=== PATIENT | female | born 1955 | race Caucasian/White ===

== ENCOUNTER → 2022-09-30 | Outpatient (CLI) | payer MEDICARE ==
[2022-09-30 07:51] LABS: African American GFR (CKD) >90 (>60 ml/min/1.73 sqM); Blood Urea Nitrogen 17 mg/dL (7-17); Non-African American GFR(CKD) 85 (>60 ml/min/1.73 sqM)
--- NOTE | 2022-09-30 08:42 | CT ---
EXAMINATION TYPE: CT soft tissue neck w con DATE OF EXAM: 09/30/2022 HISTORY: LT side neck mass, marked by BB. Hx LT side breast ca. COMPARISON: NONE CT DLP: 519.60 mGycm. Automated Exposure Control for Dose Reduction was Utilized. TECHNIQUE: CT scan of the neck is performed with IV Contrast, patient injected with 100 mL of Isovue 300, axial images are obtained, coronal and sagittal reformatted images are reviewed. FINDINGS: Airway: Calcified carinal lymph nodes are seen. There is prominent 1.5 x 0.9 cm paratracheal lymph no de axial image 10. Some prominence of the lingular tonsils at the base of the tongue. Parotid/submandibular glands: A 4 mm hyperdense focus inferior left parotid gland axial image 68 favo rs benign intraparotid lymph node. Carotid/Vascular Structures: Moderate calcified plaque bilateral carotid bulbs extends into the proxi mal internal carotid arteries without significant stenosis. Osseous Structures: Grade 1 retrolisthesis C5 on C6 with mild to moderate disc space narrowing. Bridg ing osteophytes in the thoracic spine anteriorly are seen. Other: The metallic BB is placed at level of palpable abnormality posterior left neck axial image 58. There are some prominent round hyperdense masses favoring lymph nodes at this level. Largest measure s 10 x 19 mm axial image 55 and the posterior cervical triangle and inferior level of the hyoid bone. There are similar appearing lymph nodes perhaps slightly smaller in the right posterior cervical tri angle. No definitive greater than 1.0 cm on short axis lymph nodes are identified bilaterally. There are prominent but subcentimeter lymph nodes in the submandibular region bilaterally. The parapharyngeal fat spaces are maintained bilaterally. IMPRESSION: Nonspecific prominent but subcentimeter lymph nodes corresponding to palpable abnormality posterior left neck with additional similar-appearing lymph nodes bilateral submandibular region and right posterior cervical triangle noted. No obvious greater than 1.0 cm on short axis adenopathy or concerning mass seen. Consider repeat imaging if palpable abnormality is thought to enlarge.
== END | disposition home or self-care (01) ==
LOC: RADCTMAIN 06:55
PROVIDERS: ATTEND Family Medicine
DX: R22.1 Localized swelling, mass and lump, neck (principal)
CPT/HCPCS: 82565; 84520; 70491; 36415; Q9967

== ENCOUNTER → 2023-05-25 | Outpatient (CLI) | payer MEDICARE ==
--- NOTE | 2023-05-25 20:28 | MM ---
Reason for Exam: Screening (asymptomatic). Last mammogram was performed 1 year(s) and 9 month(s) ago. Patient History: Menarche at age 13. First Full-Term at age 23. Postmenopausal. Patient has history of breast feeding. 05/05/2019, Benign Stereotactic Core Biopsy on the left side. 08/29/2016, High risk Stereotactic Core Biopsy - 3D on the left side. 09/12/2016, Benign Excisional Biopsy on the left side. Risk Values: Brandie 5 year model risk: 2.3%. NCI Lifetime model risk: 7.7%. Prior Study Comparison: 05/04/2020 Bilateral Screening Mammogram, Unknown. 08/19/2021 Bilateral Screening Mammogram, Unknown. Tissue Density: There are scattered fibroglandular densities. Findings: Analyzed By CAD. Microclip left breast from prior biopsy. There is no suspicious group of microcalcifications or new suspicious mass in either breast. Overall Assessment: Negative, BI-RAD 1 Management: Screening Mammogram of both breasts in 1 year. . Patient should continue monthly self-breast exams. A clinical breast exam by your physician is recommended on an annual basis. This exam should not preclude additional follow-up of suspicious palpable abnormalities. Note on Brandie scores and lifetime risk: 1. A Brandie score greater than 3% is considered moderate risk. If this is the case, consider specialist referral to assess eligibility for a risk reducing agent. 2. If overall lifetime risk for the development of breast cancer is 20% or higher, the patient may qualify for future screening with alternating mammogram and breast MRI. Electronically signed and approved by: Santos Santillan M.D. Radiologist
== END | disposition home or self-care (01) ==
LOC: RADMAMWWP 08:48
PROVIDERS: ATTEND Family Medicine
DX: Z12.31 Encounter for screening mammogram for malignant neoplasm of breast (principal); Z78.0 Asymptomatic menopausal state
CPT/HCPCS: 77063; 77067

== ENCOUNTER → 2023-10-20 | Outpatient (CLI) | payer MEDICARE ==
--- NOTE | 2023-10-20 17:03 | CTL ---
EXAMINATION TYPE: CT Low Dose Lung DATE OF EXAM ORDERED: 10/20/2023 HISTORY: . Low Dose CT Lung Screening CT DLP: [address] CTDI: 2.3 mGy IV CONTRAST USED: None. SCREENING VISIT: First visit COMPARISON: None. TECHNIQUE: Low dose computed tomography scan was performed through the chest at 1 millimeter thick se ctions and reconstructed images in the coronal plane at [address] DIAGNOSTIC QUALITY: Satisfactory FINDINGS: LUNG NODULES: Not presentLeft lung: no nodules identified.Right lung: no nodules identified. LUNGS: COPD: Severity: Mild Fibrosis: Severity:None Lymph nodes: None Other findings: Linear opacities within the anterior upper lobes bilaterally likely reflect inflammat ory/postinflammatory change. The remainder of the lungs are clear. Calcified hilar and mediastinal ly mph nodes compatible with remote granulomatous disease. RIGHT PLEURAL SPACE: Effusion: None Calcification: None Thickening: None Pneumothorax: None LEFT PLEURAL SPACE: Effusion: None Calcification: None Thickening: None Pneumothorax: None HEART: Heart Size: Mildly enlarged Coronary calcification: Moderate Pericardial effusion: None OTHER FINDINGS: Upper abdomen: No significant abnormality Bony thorax: Degenerative changes Supraclavicular region: No significant abnormalityOther: No significant abnormalityI IMPRESSION: No concerning pulmonary nodules greater than 5 mm in size. Bandlike areas of inflammatory /postinflammatory change in the upper lobes bilaterally. Evidence of remote granulomatous disease. FOLLOW UP CT CHEST RECOMMENDATION: Follow-up screening in one year CT LUNG RAD: LUNG RAD CATEGORY 1 negative
== END | disposition home or self-care (01) ==
LOC: RADCTMAIN 14:55
PROVIDERS: ATTEND Family Medicine
DX: Z12.2 Encounter for screening for malignant neoplasm of respiratory organs (principal); F17.210 Nicotine dependence, cigarettes, uncomplicated
CPT/HCPCS: 71271

== ENCOUNTER 2023-12-20 07:36 | Day surgery (SDC) | payer MEDICARE ==
[2023-12-20] MEDS ORDERED: PROPOFOL 10 MG/ML 20 ML VIAL IV ONE (08:40)
[2023-12-20] MEDS ORDERED: LACTATED RINGERS 1,000 ML BAG ONE (08:40)
--- NOTE | 2024-01-18 12:25 | FL ---
Jesusitakarl Aliya ID: [id number] : 1955 EXAMINATION TYPE: FL barium enema DATE OF EXAM: 12/20/2023 COMPARISON: None available HISTORY: 68-year-old female incomplete colonoscopy today, skull to the mid sigmoid colon, no biopsies . Patient with strong family history and colonoscopy performed every 3 years. TECHNIQUE: A single contrast barium enema study is performed. A total of 1 minute 51 seconds of flu oroscopic time was utilized during procedure and 48 images obtained. Total dose area product (DAP) i n uGy*m?, mGy*cm? (or similar): 55. FINDINGS: [employer] Consultant view of the abdomen shows prominent residual air throughout the colon. Decision was made to proceed with a single contrast enema exam. Contrast is administered per rectum and successfully passes to the cecum. There is filling of the kalee endix. Left-sided colonic diverticulosis is noted, greatest in the lower descending as well as the pr oximal to mid sigmoid colon. There is persistent irregular narrowing for a length of 7.4 cm at the proximal sigmoid colon. No othe r annular constricting lesions are identified. In addition, along the proximal third transverse colon, there is a 1.7 cm filling defect and a 1.0 cm filling defect noted along the posterior wall, supine Post-Evac image. These could represent small f ecaliths or polyps. IMPRESSION: 1. Persistent irregular narrowing for a 7.4 cm long segment of the proximal sigmoid colon. Further wo rkup for postinflammatory stricture versus neoplasm recommended. 2. A couple filling defects measuring 1.7 cm and 1.0 cm along the posterior wall of the proximal thir d transverse colon seen on the last image. These could represent small fecaliths or underlying polyps . 3. Left-sided colonic diverticulosis greatest in the lower descending and proximal to mid sigmoid col on.
--- NOTE | 2024-02-26 16:07 | P.GSHP ---
History of Present Illness H&P Date: 12/20/23 CHIEF COMPLAINT: GERD and colon screen HISTORY OF PRESENT ILLNESS: The patient is a 68-year-old female who presents with gastroesophageal reflux disease and need for colon screen. Upper and lower endoscopy were offered for further evaluation and management. PAST MEDICAL HISTORY: Please see list. PAST SURGICAL HISTORY: Please see list. MEDICATIONS: Please see list. ALLERGIES: Please see list. SOCIAL HISTORY: No illicit drug use FAMILY HISTORY: No reports of Crohn disease or ulcerative colitis. REVIEW OF ORGAN SYSTEMS: CONSTITUTIONAL: No reports of fevers or chills. GI: Denies any blood in stools or constipation. PHYSICAL EXAM: VITAL SIGNS: Stable GENERAL: Well-developed pleasant in no acute distress. HEENT: No scleral icterus. Extraocular movements grossly intact. Moist buccal mucosa. NECK: Supple without lymphadenopathy. CHEST: Unlabored respirations. Equal bilateral excursions. CARDIOVASCULAR: Regular rate and rhythm. Distal 2+ pulses. ABDOMEN: Soft, nondistended. MUSCULOSKELETAL: No clubbing, cyanosis, or edema. ASSESSMENT: 1. Gastroesophageal reflux disease 2. Colon screen. PLAN: 1. Recommend proceeding with an upper and lower endoscopy
--- NOTE | 2024-02-26 16:11 | P.PCN ---
Date of Procedure: 12/20/23 Description of Procedure: PREOPERATIVE DIAGNOSIS: Gastroesophageal reflux disease. POSTOPERATIVE DIAGNOSIS: Gastroesophageal reflux disease. Gastritis with bleeding, acute Multiple gastric ulcers Presbyesophagus OPERATION: Esophagogastroduodenoscopy with biopsies along antrum and duodenum SURGEON: Kerri Ludwig MD ANESTHESIA: MAC. INDICATIONS: The patient is a 47-year-old female who presents with reflux disease. Benefits and risks of the procedure were described. Informed consent was obtained. DESCRIPTION: The patient was brought into the endoscopy suite and laid in the left lateral decubitus position. An Olympus gastroscope was passed along the posterior oropharynx down to the distal esophagus where the squamocolumnar junction was encountered at 40 cm from the incisors. The stomach was entered and no bile reflux was found. Additional findings are listed below. Biopsies with cold f orceps were obtained of the antrum. The first through third portion of the duodenum was examined. Retroflexion of the scope confirmed Hill grade 2 lower esophageal valve. The squamocolumnar junction demonstrated LA grade B erosive esophagitis. The stomach was desufflated. The patient tolerated the procedure well. FINDINGS: Squamocolumnar junction 40 cm from the incisors. Diaphragmatic hiatus at 40 cm. Presbyesophagus Multiple acute gastric ulcers, 3 mm with bleeding, biopsies obtained. Acute gastritis with bleeding. Hill grade 2 lower esophageal valve. LA grade B erosive esophagitis. Biopsies obtained of the duodenum. RECOMMENDATIONS: Omeprazole 40 mg daily prescribed.
--- NOTE | 2024-02-26 16:14 | P.PCN ---
Date of Procedure: 12/20/23 Description of Procedure: PREOPERATIVE DIAGNOSIS: Sigmoid diverticulosis Colon except screening POSTOPERATIVE DIAGNOSIS: Moderate to severe sigmoid diverticulosis Internal and external grade 2 hemorrhoids Partial large bowel obstruction due to sigmoid stricture OPERATION: Colonoscopy to the sigmoid colon. SURGEON: Kerri Ludwig MD. ANESTHESIA: MAC. INDICATIONS: The patient is a 68-year-old female who presents for colonoscopy screening. Last colonoscopy 5 years. Benefits and risks were described and informed consent was obtained. DESCRIPTION OF PROCEDURE: The patient had undergone GoLytely prep. The patient had been brought into the operating room and laid in the left lateral decubitus position. After adequate intravenous sedation, the rectum was examined with 2% lidocaine jelly. External hemorrhoids were encountered. Prostate was unremarkable. The rectal tone was within normal limits. No lesions were palpated in the rectal vault. An Olympus colonoscope was advanced through tortuous sigmoid colon requiring abdominal wall pressure. Despite multiple maneuvers scope passed to the sigmoid colon stricture. The prep was fair. Scattered diverticulosis was encountered. No evidence of focal colitis was found. Retroflexion of the scope demonstrated grade 2 internal hemorrhoids without active bleeding or inflammation. The colon was desufflated. The patient had tolerated the procedure well. Withdrawal time was over 6 minutes. FINDINGS: Aronchick preparation quality scale 2+ (1-5) Internal hemorrhoids, grade 2 External prolapsed hemorrhoids, grade 2 No arteriovenous malformations sigmoid colon Highly redundant sigmoid colon requiring abdominal wall pressure Partial large bowel obstruction sigmoid colon to 30 cm from the anal verge No focal colitis. RECOMMENDATIONS: Recommend barium enema Repeat colonoscopy in 1 year2024
== END 2023-12-20 10:23 ==
LOC: ORWHC2ENDO 07:36
PROVIDERS: ATTEND Surgery Plastic and Reconstructive Surgery
DX: K31.9 Disease of stomach and duodenum, unspecified (principal); K21.00 Gastro-esophageal reflux disease with esophagitis, without bleeding; K22.89 Other specified disease of esophagus; K25.9 Gastric ulcer, unspecified as acute or chronic, without hemorrhage or perforation; K56.690 Other partial intestinal obstruction; K57.30 Diverticulosis of large intestine without perforation or abscess without bleeding; K64.1 Second degree hemorrhoids; I10 Essential (primary) hypertension; E78.5 Hyperlipidemia, unspecified; J44.9 Chronic obstructive pulmonary disease, unspecified; E11.9 Type 2 diabetes mellitus without complications; F17.210 Nicotine dependence, cigarettes, uncomplicated; Z86.73 Personal history of transient ischemic attack (TIA), and cerebral infarction without residual deficits; Z79.899 Other long term (current) drug therapy
CPT/HCPCS: 43239; 45330; 74270; 88305

== ENCOUNTER → 2024-05-24 | Outpatient (CLI) | payer MEDICARE ==
--- NOTE | 2024-05-24 12:45 | MR ---
EXAMINATION TYPE: MR brain wo/w con DATE OF EXAM: 05/24/2024 12:10 PM COMPARISON: None. CLINICAL INDICATION: Female, 69 years old with history of R41.3 MEMORY LOSS, Slight memory loss, Head aches, Nerve pain in face TECHNIQUE: Multiplanar, multiecho imaging on a 3.0 Love magnet is performed through the brain. Stud y is performed within 24 hours of arrival to the hospital.Multiplanar, multiecho imaging on a 3.0 Nissa la magnet is performed through the knee. IV Contrast: 7.5ml mL Gadobutrol (None, if empty) FINDINGS: The craniovertebral junction is normal. The pituitary is normal. Diffusion-weighted imaging is performed. No abnormal hyperintensity is present to suggest an acute i ntracranial infarct or acute ischemic change. Patchy bilateral periventricular and deep white matter ischemic type changes present. Ventricles and sulci are appropriate for the patient age. No abnormal enhancement. IMPRESSION: 1. No acute intracranial process. 2. Chronic appearing periventricular and deep white matter ischemic-type changes. [facility], , 05/24/2024 12:43 PM
== END | disposition home or self-care (01) ==
LOC: RADMRIMAIN 11:03
PROVIDERS: ATTEND Family Medicine
DX: R90.82 White matter disease, unspecified (principal)
CPT/HCPCS: 70553; A9585

== ENCOUNTER → 2024-07-15 | Outpatient (CLI) | payer MEDICARE | END | disposition home or self-care (01) | LOC: LABWHC1 09:30 | PROVIDERS: ATTEND Surgery Plastic and Reconstructive Surgery | DX: F17.200 Nicotine dependence, unspecified, uncomplicated (principal) | CPT/HCPCS: 80323 ==

== ENCOUNTER → 2024-11-04 | Outpatient (CLI) | payer MEDICARE ==
[2024-11-04 20:04] LABS: ALT 17 U/L (8-44); AST 24 U/L (13-35); Albumin 4.4 g/dL (3.8-4.9); Albumin/Globulin Ratio 1.42 Ratio (1.60-3.17); Alkaline Phosphatase 100 U/L (41-126); Anion Gap 13.70 mmol/L (4.00-12.00); BUN/Creat Ratio 26.00 Ratio (12.00-20.00); Blood Urea Nitrogen 18.2 mg/dL (9.0-27.0); Calcium 9.8 mg/dL (8.7-10.3); Carbon Dioxide 27.3 mmol/L (21.6-31.8); Chloride 101 mmol/L (96-109); Globulin 3.1 g/dL (1.6-3.3); Glucose 158 mg/dL (70-110); Potassium 4.1 mmol/L (3.5-5.5); Sodium 142 mmol/L (135-145); Total Protein 7.5 g/dL (6.2-8.2)
[2024-11-04 20:08] LABS: Basophils # (A) 0.08 X 10*3/uL (0.00-0.10); Basophils % (A) 0.7 %; Eosinophils # (A) 0.13 X 10*3/uL (0.04-0.35); Eosinophils % (A) 1.1 %; HCT 50.4 % (37.2-46.3); HGB 16.5 g/dL (12.0-15.0); Immature Grans, Automated 0.20 %; Lymphocytes # (A) 2.16 X 10*3/uL (0.90-5.00); Lymphocytes % (A) 18.5 %; MCH 30.0 pg (27.0-32.0); MCHC 32.7 g/dL (32.0-37.0); MCV 91.6 FL (80.0-97.0); Monocytes # (A) 0.45 X 10*3/uL (0.20-1.00); Monocytes % (A) 3.8 %; NRBC Per 100 WBC 0 X 10*3/uL (0.00-0.01); Neutrophils # (A) 8.86 X 10*3/uL (1.80-7.70); Neutrophils % (A) 75.7 %; Platelet Count 352 X 10*3/uL (140-440); RBC 5.50 X 10*6/uL (4.10-5.20); RDW 13.6 % (11.5-14.5); WBC 11.70 X 10*3/uL (4.50-10.00)
== END | disposition home or self-care (01) ==
LOC: LABWHC1 15:18
PROVIDERS: ATTEND Surgery Plastic and Reconstructive Surgery
DX: C18.9 Malignant neoplasm of colon, unspecified (principal)
CPT/HCPCS: 36415; 80053; 85025; 86850; 86900; 86901

== ENCOUNTER 2024-11-07 08:39 | Day surgery (SDC) | payer MEDICARE ==
[2024-11-05 10:36] VITALS: BMI 27.3
--- NOTE | 2024-11-07 07:58 | P.GSHP ---
History of Present Illness H&P Date: 11/07/24 CHIEF COMPLAINT: Sigmoid diverticulitis with possible malignant neoplasm, dysphagia HISTORY OF PRESENT ILLNESS: The patient is a 69-year-old female who presents with worsening change in bowel habits and mass found on imaging studies. Patient also has diverticulitis. Symptoms are worse in the past 6 months. Cardiac risk assessment was obtained. Additionally, patient reports worsening troubles with swallowing for over 3 months. Patient presents for upper endoscopic dilation and lower endoscopy with resection PAST MEDICAL HISTORY: Please see list. PAST SURGICAL HISTORY: Please see list. MEDICATIONS: Please see list. ALLERGIES: Please see list. SOCIAL HISTORY: No illicit drug use FAMILY HISTORY: No reports of Crohn disease or ulcerative colitis. REVIEW OF ORGAN SYSTEMS: CONSTITUTIONAL: Denies any fever or chills. HEENT: Denies any trouble with vision or nosebleeds. Has difficulty swallowing. LYMPHATIC: The patient denies any lumps and bumps around the neck. ENDOCRINE: Denies any thyroid disorders. Has blood sugar glucose intolerance. RESPIRATORY: Has chronic struct of pulmonary disease CARDIOVASCULAR: Denies any chest pain, palpitations, or recent heart attacks. GASTROINTESTINAL: Has chronic diverticulitis. Has change in bowel habits. GENITOURINARY: Has increased urinary frequency. MUSCULOSKELETAL: Has back pain, stiffness, joint arthritis. NEUROLOGIC: Denies any numbness or tingling along the distal extremities. No seizure disorders or headaches. PSYCHIATRIC: Denies depression or suidical ideation. HEMATOLOGIC: Denies any abnormal bleeding or bruising. PHYSICAL EXAM: VITAL SIGNS: Stable GENERAL: Well-developed pleasant in no acute distress. HEENT: No scleral icterus. Extraocular movements grossly intact. Moist buccal mucosa. NECK: Supple without lymphadenopathy. CHEST: Unlabored respirations. Equal bilateral excursions. CARDIOVASCULAR: Regular rate and rhythm. Distal 2+ pulses. ABDOMEN: Soft, nontender, nondistended. MUSCULOSKELETAL: No clubbing, cyanosis, or edema. NERUO: Cranial nerves 2-12 grossly intact. PSYCH: Alert and oriented to person place and time. REPORTS: Cardiac risk assessment obtained demonstrated increased risk. STUDIES: Barium enema reviewed demonstrates obstructive mass involving the sigmoid colon with diverticulosis. ASSESSMENT: 1. Large bowel obstruction with diverticulosis and poss malignant neoplasm 2. Esophageal obstruction 3. Chronic obstructive pulmonary disease. PLAN: 1. Benefits and risks of surgical robotic sigmoid resection was reviewed in detail. Sigmoid colon resection described. Robotic-assisted approach was also described. 2. Enhanced colon recovery program. 3. DVT prophylaxis. 4. Antibiotic prophylaxis. 5. Inpatient hospitalization greater than 2 nights. 6. Recommend colonoscopy for endoscopic tattooing. 7. Patient is at low risk for complications due to COPD 8. Upper endoscopy with dilation described. Past Medical History Past Medical History: Asthma, COPD, Diabetes Mellitus, Hyperlipidemia, H ypertension, Memory Impairment, Skin Disorder Additional Past Medical History / Comment(s): diverticulitis, autoimmune disorder,psoriasis, hx of falls from lightheadedness,urinary leakage History of Any Multi-Drug Resistant Organisms: None Reported Past Surgical History: Bladder Surgery Additional Past Surgical History / Comment(s): colonoscopies, stomach polyp Past Anesthesia/Blood Transfusion Reactions: No Reported Reaction Additional Past Anesthesia/Blood Transfusion Reaction / Comment(s): no hx blood transfusion Smoking Status: Current every day smoker - Past Family History Sister(s) Family Medical History: Cancer Additional Family Medical History / Comment(s): pancreatic, lymphnode Mother Additional Family Medical History / Comment(s): brain aneurysm Father Family Medical History: Congestive Heart Failure (CHF) Medications and Allergies Home Medications Medication Instructions Recorded Confirmed Type Ascorbic Acid [Vitamin C] 500 mg PO DAILY 11/05/24 11/05/24 History Calcium 26/Magnesium 15/Zinc 1 each PO DAILY 11/05/24 11/05/24 History [Eitfhny-Jzqjcldxa-Fksr Capsule] Cholecalciferol (Vitamin D3) 50 mcg PO DAILY 11/05/24 11/05/24 History [Vitamin D3 (50 Mcg = 2000 Iu)] Cinnamon Bark [Cinnamon] 2,400 mg PO DAILY 11/05/24 11/05/24 History Cyanocobalamin (Vitamin B-12) 2,000 mcg PO DAILY 11/05/24 11/05/24 History [Vitamin B-12] Cyclobenzaprine HCl 5 mg PO BID PRN 11/05/24 11/05/24 History Melatonin [Melatonin Tr] 10 - 20 mg PO HS PRN 11/05/24 11/05/24 History Naproxen Sodium [Aleve] 220 mg PO BID PRN 11/05/24 11/05/24 History hydroCHLOROthiazide [Hydrodiuril] 25 mg PO DAILY 11/05/24 11/05/24 History Allergies Allergy/AdvReac Type Severity Reaction Status Date / Time adhesive tape Allergy Rash/Hives Verified 11/05/24 10:37 mold Allergy pneumonia Verified 11/05/24 10:02 symptoms
[~2024-11-07 08:39] MED LIST: LIDOCAINE 1% (10MG/ML) FOR IV START INTRADERMA PRN
[2024-11-07] MEDS: IV FLUID CONTINUATION 1,000 ML IV ONE ×3 (09:07→16:00)
[2024-11-07 09:25] LABS: Glucose,Whole Blood 101 mg/dL (70-110)
[2024-11-07] MEDS: LACTATED RINGERS 1,000 ML IV SCH (09:27)
[2024-11-07 09:32] LABS: Basophils # (A) 0.07 10*3/uL (0.00-0.10); Basophils % (A) 0.8 %; Eosinophils # (A) 0.10 10*3/uL (0.04-0.35); Eosinophils % (A) 1.1 %; HCT 51.7 % (37.2-46.3); HGB 17.5 g/dL (12.0-15.0); Lymphocytes # (A) 2.05 10*3/uL (0.90-5.00); Lymphocytes % (A) 22.4 %; MCH 30.5 pg (27.0-32.0); MCHC 33.8 g/dL (32.0-37.0); MCV 90.1 fL (80.0-97.0); Monocytes # (A) 0.43 10*3/uL (0.20-1.00); Monocytes % (A) 4.7 %; Neutrophils # (A) 6.49 10*3/uL (1.80-7.70); Neutrophils % (A) 70.8 %; Platelet Count 348 10*3/uL (140-440); RBC 5.74 10*6/uL (4.10-5.20); RDW 13.6 % (11.5-14.5); WBC 9.16 10*3/uL (4.50-10.00)
[2024-11-07] MEDS ORDERED: PROPOFOL 10 MG/ML 20 ML VIAL IV ONE (09:44)
[2024-11-07] MEDS ORDERED: LIDOCAINE 1% INJ 10MG/ML (20 ML MDV) ONE (09:44)
[2024-11-07 09:49] LABS: ALT 21 U/L (4-34); African American GFR (CKD) >90 (>60 ml/min/1.73 sqM); Anion Gap 14 mmol/L; Blood Urea Nitrogen 17 mg/dL (7-17); Calcium 9.9 mg/dL (8.4-10.2); Carbon Dioxide 23 mmol/L (22-30); Chloride 104 mmol/L (98-107); Glucose 99 mg/dL (74-99); Non-African American GFR(CKD) >90 (>60 ml/min/1.73 sqM); Sodium 141 mmol/L (137-145)
[2024-11-07 09:51] LABS: Albumin 5.0 g/dL (3.5-5.0); Potassium 4.8 mmol/L (3.5-5.1); Total Protein 8.7 g/dL (6.3-8.2)
[2024-11-07 09:52] LABS: AST 35 U/L (14-36); Alkaline Phosphatase 81 U/L (38-126)
--- NOTE | 2024-11-07 10:10 | P.PCN ---
Date of Procedure: 11/07/24 Description of Procedure: PREOPERATIVE DIAGNOSIS: Dysphagia POSTOPERATIVE DIAGNOSIS: Gastroesophageal reflux disease with erosive esophagitis Upper esophageal stenosis Severe gastritis with recent bleed Gastric ulcers Duodenitis Diaphragmatic hiatal hernia OPERATION: Esophagogastroduodenoscopy with rigid dilator over the guidewire 57 Fr with dilation Esophagogastroduodenoscopy with cold forceps biopsies esophagus, antrum, duodenum SURGEON: Kerri Ludwig MD ANESTHESIA: MAC. INDICATIONS: The patient is a 69-year-old female who presents with dysphagia. Benefits and risks of the procedure were described. Informed consent was obtained. DESCRIPTION: The patient was brought into the endoscopy suite and laid in the left lateral decubitus position. After a timeout was confirmed, the procedure was initiated. An Olympus gastroscope was passed into the posterior oropharynx where an upper e sophageal stenosis was identified. The scope was passed down to the distal esophagus. To address the upper esophageal stenosis, rigid dilator over guidewire was selected. Next using an Libyan rigid dilator, a guidewire was placed through the gastroscope. Next the scope was withdrawn. A 57-Peruvian rigid Libyan dilator was passed carefully along the posterior oropharynx to 45 cm and left in place for 2-3 minutes stretch. The dilator was withdrawn including the guidewire. The scope was reentered along the posterior oropharynx with no findings of full- thickness tear of the upper esophageal sphincter. Additional findings below. Within the stomach, acute gastritis with bleeding with gastric ulcerations were identified along the body of the stomach with cold forceps biopsies obtained. The lower esophageal valve was evaluated with Hill grade 2 lower esophageal valve. LA grade B erosive esophagitis was identified. Diaphragmatic hernia identified. Scope was advanced into the duodenum with duodenitis. No full-thickness injury was encountered. The GI tract was desufflated. The patient tolerated the procedure well. FINDINGS: Upper esophageal stenosis dilated 57-Peruvian rigid dilator Diaphragmatic hiatus at 40 cm from the incisors Squamocolumnar junction 38 cm from the incisors. Diaphragmatic hernia 2 cm Acute gastritis with bleeding along the gastric body and fundus cold forceps biopsies obtained Acute gastric ulcerations identified at antrum Duodenum with duodenitis, biopsies obtained LA grade B erosive esophagitis, biopsies obtained Hill grade 2 lower esophageal valve. RECOMMENDATIONS: Omeprazole 40 mg daily
[2024-11-07] MEDS ORDERED: HEPARIN SODIUM,PORCINE 5,000 UNIT/ML 1 ML VIAL SQ PRN (10:26)
[2024-11-07] MEDS ORDERED: Antibiotics per Pharmacy 1 EACH MISC MISCELLANE PRN (10:26)
--- NOTE | 2024-11-07 10:30 | P.PCN ---
Date of Procedure: 11/07/24 Description of Procedure: PREOPERATIVE DIAGNOSIS: Colon adenoma Colon mass, sigmoid Diverticulosis POSTOPERATIVE DIAGNOSIS: Large bowel obstruction due to sigmoid diverticulitis Colon adenoma OPERATION: Colonoscopy to the sigmoid colon SURGEON: Kerri Ludwig MD. ANESTHESIA: MAC. INDICATIONS: The patient is a 69-year-old female who presents with a normal barium enema for colonic mass. Colon adenomas were also identified. She presents for endoscopic resection of adenomas including possible tattoo for surgical resection. Benefits and risks were described and informed consent was obtained. DESCRIPTION OF PROCEDURE: The patient had undergone Suprep. The patient had been brought into the op erating room and laid in the left lateral decubitus position. After adequate intravenous sedation, the rectum was examined with 2% lidocaine jelly. External hemorrhoids were encountered. The rectal tone was within normal limits. No lesions were palpated in the rectal vault. An Olympus colonoscope was advanced through tortuous sigmoid colon requiring abdominal wall pressure. Despite multiple maneuvers scope severe obstruction was found 30 cm from the anal verge consistent with sigmoid mass. The mucosa was narrow. No friable masses were found at this level. The prep was fair. Sigmoid diverticulosis was encountered. No evidence of focal colitis was found. Retroflexion of the scope demonstrated grade 2 internal hemorrhoids without active bleeding or inflammation. The colon was desufflated. The patient had tolerated the procedure well. Withdrawal time was over 6 minutes. FINDINGS: Aronchick preparation quality scale 2+ (1-5) to the sigmoid colon Internal hemorrhoids, grade 2 External prolapsed hemorrhoids, grade 2 No arteriovenous malformations to the sigmoid colon Large obstruction mass of the sigmoid preventing advancement of scope No focal colitis. RECOMMENDATIONS: Resection is advised due to obstruction Will need colonoscopy assessment after for retrieval of transverse colon adenomatous unable to retrieve due to blockage Plan - Discharge Summary Discharge Rx Participant: No New Discharge Prescriptions: No Action Cyanocobalamin (Vitamin B-12) [Vitamin B-12] 2,000 mcg PO DAILY Cinnamon Bark [Cinnamon] 2,400 mg PO DAILY Cyclobenzaprine HCl 5 mg PO BID PRN PRN Reason: Pain hydroCHLOROthiazide [Hydrodiuril] 25 mg PO DAILY Melatonin [Melatonin Tr] 10 - 20 mg PO HS PRN PRN Reason: sleep Calcium 26/Magnesium 15/Zinc [Bfforgd-Rzjrdilkd-Fxyv Capsule] 1 each PO DAILY Naproxen Sodium [Aleve] 220 mg PO BID PRN PRN Reason: Pain Ascorbic Acid [Vitamin C] 500 mg PO DAILY Cholecalciferol (Vitamin D3) [Vitamin D3 (50 Mcg = 2000 Iu)] 50 mcg PO DAILY Discharge Medication List Ascorbic Acid [Vitamin C] 500 mg PO DAILY 11/05/24 [History] Calcium 26/Magnesium 15/Zinc [Thozfnw-Fycuihymx-Gkte Capsule] 1 each PO DAILY 11/05/24 [History] Cholecalciferol (Vitamin D3) [Vitamin D3 (50 Mcg = 2000 Iu)] 50 mcg PO DAILY 11/05/24 [History] Cinnamon Bark [Cinnamon] 2,400 mg PO DAILY 11/05/24 [History] Cyanocobalamin (Vitamin B-12) [Vitamin B-12] 2,000 mcg PO DAILY 11/05/24 [History] Cyclobenzaprine HCl 5 mg PO BID PRN 11/05/24 [History] Melatonin [Melatonin Tr] 10 - 20 mg PO HS PRN 11/05/24 [History] Naproxen Sodium [Aleve] 220 mg PO BID PRN 11/05/24 [History] hydroCHLOROthiazide [Hydrodiuril] 25 mg PO DAILY 11/05/24 [History]
--- NOTE | 2024-11-07 10:47 | P.PN ---
Progress Note - Text Progress Note Date: 11/07/24 Patient moderate cough procedure including pre-existing chronic struct of pulmonary disease. Additionally, patient reports that she has been smoking despite being strictly warned to avoid smoking for at least 4 weeks prior to surgery. Will obtain chest x-ray. Risk of cancellation of procedure was described due to after smoking and risk of COPD exacerbation/pneumonia.
--- NOTE | 2024-11-07 12:17 | XR ---
EXAMINATION TYPE: XR chest 1V portable DATE OF EXAM: 11/07/2024 11:50 AM COMPARISON: CT CLINICAL INDICATION: Female, 69 years old with history of Dyspnea; TECHNIQUE: XR chest 1V portable Frontal view of the chest. FINDINGS: Lungs/Pleura: There is flattening of the diaphragm with increased lucency of the lungs. No evidence o f pneumothorax, pleural effusion or focal consolidation. Pulmonary vascularity: Unremarkable. Heart/mediastinum: Cardiomediastinal silhouette is unremarkable. Musculoskeletal: No acute osseous pathology. IMPRESSION: 1. No acute cardiopulmonary disease process. 2. COPD changes. [facility], , 11/07/2024 12:14 PM
[2024-11-07] MEDS: SODIUM CHLORIDE 0.9% 1,000 ML IV SCH ×3 (12:45→22:54)
[2024-11-07] MEDS: NEOMYCIN 500 MG TAB PO SCH (14:09)
[2024-11-07] MEDS: metroNIDAZOLE 500 MG TAB PO SCH (14:10)
[2024-11-07] MEDS: PEG 3350 (420 GM/BTL) + LYTES 4,000 ML BOTTLE PO ONE (16:37)
[2024-11-07] MEDS ORDERED: ZINC OXIDE PASTE (Z-GUARD) 1 APPLIC TOPICAL PRN (19:37)
[2024-11-07 19:47] VITALS: RESP 18
--- NOTE | 2024-11-07 21:38 | P.PN ---
Subjective Progress Note Date: 11/07/24 CHIEF COMPLAINT: Large bowel obstruction HISTORY OF PRESENT ILLNESS: The patient is a 69-year-old female admitted following the lower endoscopy demonstrating large bowel obstruction due to diverticulitis. Prior to start of endoscopy, patient had difficulty with breathing. Patient has not seen a lead software test engineer. Patient continues to smoke despite being told not to prior to her surgery. Patient has moderate cough. Chest x-ray was obtained. Patient denies any troubles with breathing at night. Patient became apneic at the time of her endoscopy. Additionally, per request for anesthesia, cardiology risk assessment is advised. Patient confirms having recent cardiac assessment in June 2024 including his prior stress test. ROS: No reports of nausea and vomiting. No fevers or chills. No new chest pain. No productive sputum PHYSICAL EXAM: VITAL SIGNS: Reviewed CONSTITUTIONAL: Well developed and in no acute distress. EYES: Conjuctivae without sclera icterus. Extraocular movements grossly intact. HEAD, EARS, NOSE, THROAT: Moist buccal mucosa. Head is atraumatic, normocephalic. Hears conversational speech. No nasal drainage. RESPIRATORY: Non-labored respirations and equal bilateral excursions. CARDIOVASCULAR: Palpable 2+ radial pulses. ABDOMEN: Nontender. Nondistended. MUSCULOSKELETAL: No gross deformity of the lower extremities noted. No clubbing. No cyanosis. SKIN: Good skin turgor. Well perfused. NEUROLOGIC: Cranial nerves II through XII grossly intact. No focal or lateralizing signs. PSYCH: Appropriate affect. Alert and oriented to person, place and time. CLINICAL LABS: Reviewed. Hemoglobin elevated 17.5, hemoconcentrated. WBC normal. STUDIES: Chest x-ray independently demonstrates no pneumothorax. Chest x-ray report demonstrates findings consistent with chronic obstructive pulmonary disease ASSESSMENT: 1. Large bowel obstruction due to diverticulitis 2. Colon adenoma unable to retrieve due to large bowel obstruction 3. Chronic tobacco abuse disorder 4. Chronic obstructive pulmonary disease PLAN: 1. Per request of anesthesiologist, additional cardiac assessment was advised. I have ordered an EKG. EKG demonstrates abnormalities with first-degree AV block. 2. Due to patient's severe chronic obstructive pulm disease and very low pulmonary reserve for low risk endoscopy, pulmonary consultation being obtained prior to surgery. 3. Patient is made aware that additional consultants are being requested prior to her surgery as her procedure is now moderate to high risk with features of moderate to severe chronic obstructive pulmonary disease Dictation was produced using LR[employer] dictation software. Please excuse any grammatical, word or spelling errors. Objective - Vital Signs Vital signs: Vital Signs Temp 97.6 F 11/07/24 19:14 Pulse 64 11/07/24 19:14 Resp 18 11/07/24 19:14 BP 171/84 11/07/24 19:14 Pulse Ox 93 L 11/07/24 19:14 FiO2 Intake & Output 11/07/24 11/07/24 11/08/24 06:59 18:59 06:59 Intake Total 1999 Balance 1999 Weight 69.6 kg Intake: IV 1999 Other: # Voids 2 # Bowel Movements 3 - Labs CBC & Chem 7: 11/07/24 09:15 11/07/24 09:20 Labs: Abnormal Lab Results - Last 24 Hours (Table) 11/07/24 11/07/24 Range/Units 09:15 09:20 RBC 5.74 H (4.10-5.20) 10*6/uL Hgb 17.5 H (12.0-15.0) g/dL Hct 51.7 H (37.2-46.3) % Total Protein 8.7 H (6.3-8.2) g/dL
[2024-11-07] MEDS: ONDANSETRON 4 MG/2 ML VIAL IVP SCH (23:06)
[2024-11-08 04:21] LABS: ALT 16 U/L (4-34); AST 25 U/L (14-36); African American GFR (CKD) >90 (>60 ml/min/1.73 sqM); Albumin 3.8 g/dL (3.5-5.0); Albumin/Globulin Ratio 1.5; Alkaline Phosphatase 74 U/L (38-126); Anion Gap 8 mmol/L; Blood Urea Nitrogen 8 mg/dL (7-17); Calcium 9.2 mg/dL (8.4-10.2); Carbon Dioxide 24 mmol/L (22-30); Chloride 109 mmol/L (98-107); Globulin 2.5 g/dL; Glucose 74 mg/dL (74-99); Non-African American GFR(CKD) >90 (>60 ml/min/1.73 sqM); Potassium 4.4 mmol/L (3.5-5.1); Sodium 141 mmol/L (137-145); Total Protein 6.3 g/dL (6.3-8.2)
[2024-11-08 04:33] LABS: Basophils # (A) 0.05 10*3/uL (0.00-0.10); Basophils % (A) 0.6 %; Eosinophils # (A) 0.12 10*3/uL (0.04-0.35); Eosinophils % (A) 1.3 %; HCT 44.8 % (37.2-46.3); HGB 14.6 g/dL (12.0-15.0); Lymphocytes # (A) 1.94 10*3/uL (0.90-5.00); Lymphocytes % (A) 21.6 %; MCH 30.1 pg (27.0-32.0); MCHC 32.6 g/dL (32.0-37.0); MCV 92.4 fL (80.0-97.0); Monocytes # (A) 0.43 10*3/uL (0.20-1.00); Monocytes % (A) 4.8 %; Neutrophils # (A) 6.40 10*3/uL (1.80-7.70); Neutrophils % (A) 71.4 %; Platelet Count 295 10*3/uL (140-440); RBC 4.85 10*6/uL (4.10-5.20); RDW 13.3 % (11.5-14.5); WBC 8.97 10*3/uL (4.50-10.00)
[2024-11-08] MEDS ORDERED: metroNIDAZOLE-NS PMX 500 MG in SALINE 1 100ML.BAG IVPB PRN (05:00)
[2024-11-08] MEDS ORDERED: ALVIMOPAN 12 MG CAPSULE PO PRN (07:00)
[2024-11-08] MEDS: SODIUM CHLORIDE 0.9% 1,000 ML IV SCH (07:52)
--- NOTE | 2024-11-08 07:55 | P.PN ---
Progress Note - Text Progress Note Date: 11/08/24 Patient vitals reviewed overnight demonstrating systolic blood pressure under 100. Patient has been discontinued of her blood pressure medication since admission. Normal saline bolus 2 L notified to nurse. Additionally, O2 sat on room air is 90%. Pulmonary consultation being requested. I personally spoke to pulmonary team, Gabby MCMAHON regarding pulmonary risk assessment prior to surgical intervention this afternoon.
[2024-11-08 08:44] VITALS: BP 110/66; PULSE 71; TEMP 98
[2024-11-08] MEDS: ACETAMINOPHEN TAB 500 MG TAB PO PRN (09:10)
--- NOTE | 2024-11-08 09:36 | P.PN ---
Subjective Progress Note Date: 11/08/24 CHIEF COMPLAINT: Large bowel obstruction HISTORY OF PRESENT ILLNESS: The patient is a 69-year-old female admitted for large bowel obstruction due to diverticulitis. Overnight, patient had oxygen desaturation 90% on room air. Patient denies any dyspnea. Patient has pre- existing chronic obstructive pulmonary disease. She complained of headache this morning. ROS: No reports of nausea and vomiting. No fevers or chills. No new chest pain. She has chronic cough. PHYSICAL EXAM: VITAL SIGNS: Reviewed CONSTITUTIONAL: Well developed and in no acute distress. EYES: Conjuctivae without sclera icterus. Extraocular movements grossly intact. Wears glasses. HEAD, EARS, NOSE, THROAT: Moist buccal mucosa. Head is atraumatic, normocephalic. Hears conversational speech. No nasal drainage. RESPIRATORY: Non-labored respirations and equal bilateral excursions. CARDIOVASCULAR: Palpable 2+ radial pulses. ABDOMEN: Nontender. Nondistended. MUSCULOSKELETAL: No gross deformity of the lower extremities noted. No clubbing. No cyanosis. SKIN: Good skin turgor. Well perfused. NEUROLOGIC: Cranial nerves II through XII grossly intact. No focal or lateralizing signs. PSYCH: Appropriate affect. Alert and oriented to person, place and time. CLINICAL LABS: Reviewed. Hemoglobin corrected from 17.5-14.5 after fluid hydration. ASSESSMENT: 1. Large bowel obstruction due to diverticulitis 2. Colon adenoma unable to retrieve due to large bowel obstruction 3. Chronic tobacco abuse disorder 4. Chronic obstructive pulmonary disease 5. Oxygen desaturation PLAN: 1. I personally contacted pulmonary team regarding pulmonary risk assessment prior to surgery as patient has not followed up with delivery analyst with her chronic struct of pulmonary disease and has recent findings of oxygen desaturation and minimal tolerance for light sedation with endoscopy. 2. Pulmonary and cardiac risk assessment pending prior to surgery. Patient made aware that pending consultants suggestions, surgery may be postponed. 3. Tylenol IV form for headache. 4. IV fluid bolus for dehydration given Dictation was produced using [employer] dictation software. Please excuse any grammatical, word or spelling errors. Objective - Vital Signs Vital signs: Vital Signs Temp 98.0 F 11/08/24 07:03 Pulse 71 11/08/24 07:03 Resp 18 11/08/24 07:03 BP 110/66 11/08/24 07:03 Pulse Ox 91 L 11/08/24 07:03 FiO2 Intake & Output 11/07/24 11/08/24 11/08/24 18:59 06:59 18:59 Intake Total 1999 Balance 1999 Weight 69.6 kg Intake: IV 1999 Other: # Voids 2 2 # Bowel Movements 3 1 - Labs CBC & Chem 7: 11/08/24 03:10 11/08/24 03:10 Labs: Abnormal Lab Results - Last 24 Hours (Table) 11/07/24 11/08/24 Range/Units 09:20 03:10 Chloride 109 H (98-107) mmol/L Total Protein 8.7 H (6.3-8.2) g/dL
--- NOTE | 2024-11-08 09:51 | P.CRDCN ---
History of Present Illness Consult date: 11/08/24 Reason for Consult (text): Preop clearance History of present illness: This is a 69-year-old female patient of Dr. Mercedes with past medical history of hypertension, dyslipidemia, breast cancer status postlumpectomy only. Patient was seen by Dr. Mercedes for cardiac risk assessment for partial colectomy back in June. She underwent a treadmill stress test and did not experience any chest pressure but had poor endurance. Following that, she underwent a Lexiscan nuclear stress test and echocardiogram. Lexiscan Cardiolite stress test reveal ed low risk finding, small in size, mild intensity primarily reversible apical perfusion defect, normal LV systolic function, nonischemic EKG response to Lexiscan infusion. Echocardiogram performed in June revealed EF 50 to 55%, no LV hypertrophy. Mild aortic stenosis, mild mitral regurgitation, mild tricuspid regurgitation, PASP 15 mmHg. When patient was seen in the office on 08/06/2024, patient was given clearance to undergo partial colectomy. She was moderate risk for moderate risk procedure. Patient was brought into the hospital on 11/07 and underwent EGD with finding of acute gastritis with bleeding along the gastric body and fundus, acute gastric ulcerations at antrum, duodenitis. That was followed by colonoscopy finding large obstructive mass of the sigmoid. Hydrochlorothiazide has been on hold due to low blood pressures. Blood pressures currently 110/66, heart rate in the 60s and 70s, pulse ox 91% on room air. -EKG: Sinus rhythm with no acute ST-T wave changes. -Chest x-ray: No acute cardiopulmonary disease process. COPD. -Laboratory studies: WBC 8.9, hemoglobin 14.6, creatinine 0.6, potassium 4.4. -Home cardiac medications: Hydrochlorothiazide. Review Of Systems: At the time of my exam: CONSTITUTIONAL: Denies fever or chills. HEENT: Denies blurred vision, vision changes, or eye pain. Denies hemoptysis CARDIOVASCULAR: Denies chest pain. Denies orthopnea. Denies PND. Denies palpitations RESPIRATORY: Denies shortness of breath. GASTROINTESTINAL: Denies abdominal pain. Denies nausea or vomiting. HEMATOLOGIC: Denies bleeding disorders. GENITOURINARY: Denies any blood in urine. SKIN: Denies puritis. Denies rash. Physical examination: Gen: This is 69-year-old female in no acute distress. VS: reviewed HEENT: Head is atraumatic, normocephalic. Pupils equal, round. Sclerae is anicteric. NECK: Supple. No JVD. LUNGS: Clear to auscultation. No wheezes or rhonchi. No intercostal retractions. HEART: Regular rate and rhythm. No murmur. ABDOMEN: Soft No tenderness. EXTREMITIES: No pedal edema. No calf tenderness. NEUROLOGICAL: Patient is awake, alert and oriented x3. Assessment: Large bowel obstruction Hypertension Dyslipidemia COPD History of breast cancer status post lumpectomy only Chronic tobacco use and dependence Plan: Hold hydrochlorothiazide for now If patient needs blood pressure control, consider adding amlodipine or if she is n.p.o., clonidine patch At the time of discharge, patient may resume hydrochlorothiazide Patient is cleared from a cardiology perspective for planned surgery. No absolute contraindications. She is at moderate risk for any complications. Cardiology will sign off this case and follow on an as-needed basis. Please reconsult for any new concerns. Patient may follow-up in the office with Dr. Mercedes in 2 weeks. Thank you kindly for this consultation. Nurse practitioner note has been reviewed, I agree with documented findings and plan of care. Patient was seen and examined. Past Medical History Past Medical History: Asthma, COPD, Diabetes Mellitus, Hyperlipidemia, Hypertension, Skin Disorder Additional Past Medical History / Comment(s): diverticulitis, autoimmune disorder,psoriasis, hx of falls from lightheadedness,urinary leakage History of Any Multi-Drug Resistant Organisms: None Reported Past Surgical History: Bladder Surgery Additional Past Surgical History / Comment(s): colonoscopies, stomach polyp Past Anesthesia/Blood Transfusion Reactions: No Reported Reaction Additional Past Anesthesia/Blood Transfusion Reaction / Comment(s): no hx blood transfusion Past Psychological History: Anxiety, Depression Smoking Status: Current every day smoker Past Alcohol Use History: Occasional Additional Past Alcohol Use History / Comment(s): started smoking at age teenager, <1 ppd Past Drug Use History: None Reported - Past Family History Sister(s) Family Medical History: Cancer Additional Family Medical History / Comment(s): pancreatic, lymphnode Mother Additional Family Medical History / Comment(s): brain aneurysm Father Family Medical History: Congestive Heart Failure (CHF) Medications and Allergies Home Medications Medication Instructions Recorded Confirmed Type Ascorbic Acid [Vitamin C] 500 mg PO DAILY 11/05/24 11/05/24 History Calcium 26/Magnesium 15/Zinc 1 each PO DAILY 11/05/24 11/07/24 History [Hpveviv-Umfbludrc-Njab Capsule] Cholecalciferol (Vitamin D3) 50 mcg PO DAILY 11/05/24 11/07/24 History [Vitamin D3 (50 Mcg = 2000 Iu)] Cinnamon Bark [Cinnamon] 2,400 mg PO DAILY 11/05/24 11/07/24 History Cyanocobalamin (Vitamin B-12) 2,000 mcg PO DAILY 11/05/24 11/07/24 History [Vitamin B-12] Cyclobenzaprine HCl 5 mg PO BID PRN 11/05/24 11/07/24 History Melatonin [Melatonin Tr] 10 - 20 mg PO HS PRN 11/05/24 11/07/24 History Naproxen Sodium [Aleve] 220 mg PO BID PRN 11/05/24 11/07/24 History hydroCHLOROthiazide [Hydrodiuril] 25 mg PO DAILY 11/05/24 11/07/24 History Allergies Allergy/AdvReac Type Severity Reaction Status Date / Time adhesive tape Allergy Rash/Hives Verified 11/07/24 09:02 mold Allergy pneumonia Verified 11/07/24 09:02 symptoms Physical Exam Vitals: Vital Signs Temp Pulse Pulse Resp BP Pulse Ox 11/08/24 07:03 98.0 F 71 18 110/66 91 L 11/08/24 01:39 98 F 68 18 94/50 90 L 11/07/24 19:50 56 L 11/07/24 19:14 97.6 F 64 18 171/84 93 L 11/07/24 15:00 65 16 131/74 94 L 11/07/24 14:00 62 18 128/65 95 11/07/24 13:00 64 18 124/79 94 L 11/07/24 12:30 65 16 130/85 94 L 11/07/24 12:00 63 16 116/73 95 11/07/24 11:00 67 18 119/68 97 11/07/24 10:45 68 18 122/80 98 11/07/24 10:30 78 16 114/74 100 11/07/24 10:25 80 16 98/66 98 Intake and Output 11/07/24 11/08/24 11/08/24 22:59 06:59 14:59 Other: # Voids 2 2 # Bowel Movements 3 1 Weight 69.6 kg Results 11/08/24 03:10 11/08/24 03:10 Cardiac Enzymes 11/07/24 11/08/24 Range/Units 09:20 03:10 AST 35 25 (14-36) U/L CBC 11/07/24 11/08/24 Range/Units 09:15 03:10 WBC 9.16 8.97 (4.50-10.00) 10*3/uL RBC 5.74 H 4.85 (4.10-5.20) 10*6/uL Hgb 17.5 H 14.6 (12.0-15.0) g/dL Hct 51.7 H 44.8 (37.2-46.3) % Plt Count 348 295 (140-440) 10*3/uL Comprehensive Metabolic Panel 11/07/24 11/08/24 Range/Units 09:20 03:10 Sodium 141 141 (137-145) mmol/L Potassium 4.8 4.4 (3.5-5.1) mmol/L Chloride 104 109 H (98-107) mmol/L Carbon Dioxide 23 24 (22-30) mmol/L BUN 17 8 (7-17) mg/dL Creatinine 0.67 0.60 (0.52-1.04) mg/dL Glucose 99 74 (74-99) mg/dL Calcium 9.9 9.2 (8.4-10.2) mg/dL AST 35 25 (14-36) U/L ALT 21 16 (4-34) U/L Alkaline Phosphatase 81 74 (38-126) U/L Total Protein 8.7 H 6.3 (6.3-8.2) g/dL Albumin 5.0 3.8 (3.5-5.0) g/dL Current Medications Generic Name Dose Route Start Last Admin Trade Name Freq PRN Reason Stop Dose Admin Alvimopan 12 mg 11/08/24 07:00 Alvimopan 12 Mg Capsule PO 11/08/24 23:00 ONCE PRN Pre-Op Heparin Sodium (Porcine) 5,000 unit 11/07/24 10:26 Heparin Sodium,Porcine 5,000 Unit/Ml 1 Ml Vial SQ 12/07/24 10:25 ONCE PRN Pre-Op Lactated Ringer's 1,000 mls @ 20 mls/hr 11/07/24 06:52 11/08/24 06:28 Lactated Ringers IV 12/07/24 06:51 Not Given .Q24H LISA Cefazolin Sodium 2 gm/ Sodium 50 mls @ 100 mls/hr 11/08/24 05:00 Chloride IVPB 11/09/24 00:01 ONCE PRN pre-op Metronidazole 500 mg/ IV 100 mls @ 100 mls/hr 11/08/24 05:00 Solution IVPB 11/09/24 00:01 ONCE PRN pre-op Sodium Chloride 1,000 mls @ 75 mls/hr 11/07/24 21:45 11/07/24 22:54 Saline 0.9% IV 75 mls/hr .[id number] LISA Administration Sodium Chloride 1,000 mls @ 999 mls/hr 11/08/24 07:30 11/08/24 09:11 Saline 0.9% IV 11/08/24 09:36 999 mls/hr Q65M LISA Administration Lidocaine HCl 0.1 ml 11/07/24 06:52 Lidocaine 1% (10mg/Ml) For Iv Start INTRADERMA 12/07/24 06:51 PER PROTOCOL PRN IV Start Ondansetron HCl 4 mg 11/08/24 00:00 11/08/24 06:37 Ondansetron 4 Mg/2 Ml Vial IVP 4 mg Q6HR LISA Administration Petrolatum 1 applic 11/07/24 19:37 Zinc Oxide Paste (Z-Guard) 1 Applic TOPICAL Q2HR PRN Skin Irritation Protocol Intake and Output 11/07/24 11/08/24 11/08/24 22:59 06:59 14:59 Other: # Voids 2 2 # Bowel Movements 3 1 Weight 69.6 kg 11/08/24 03:10 11/08/24 03:10
--- NOTE | 2024-11-08 11:37 | P.CNPUL ---
History of Present Illness Consult date: 11/08/24 Requesting physician: Kerri Ludwig Reason for consult: dyspnea, cough, COPD, hypoxemia Chief complaint: COPD. History of present illness: Pulmonary consult dated November 08, 2024. 69-year-old female seen in room 455. The patient has a history of diverticular disease, diabetes, hypertension, hyperlipidemia, and COPD. She has been smoking cigarettes for 55 years. The patient does continue to smoke. She was brought in to have bowel surgery, secondary to a bowel obstruction caused by div erticuli. Currently, the patient seen in room 455. She is on room air. She is getting saline. The patient has never been seen by a lung doctor. The patient does have underlying COPD for which she uses albuterol. We were consulted for preoperative clearance. The patient complains of increasing shortness of breath, especially when she exerts herself, cough, wheezing, chest tightness, and occasional phlegm production. The patient will need outpatient PFTs, and a 6-minute walk distance, and probably some additional medications, to get her stable for surgery. White count is 8.9, hemoglobin 14.6, hematocrit 44.8, and platelet count is 295,000. Sodium 141, potassium 4.4, chlorides 109, CO2 24, anion gap is 8 BUN is 18 creatinine 0.60. The rest of the labs are reviewed. Chest x-ray is unremarkable save for changes of COPD. Review of Systems REVIEW OF SYSTEMS: CONSTITUTIONAL: [Negative.] NEUROLOGIC: [ Negative.] HEENT: [ Negative.] CARDIAC: [Negative.] PULMONARY: Shortness of breath on exertion, cough, wheezing, occasional phlegm production. GI: [Negative.] : [Negative.] RHEUMATOLOGIC: [ Negative.] IMMUNOLOGIC: [ Negative.] ENDOCRINE: [Negative. ] DERMATOLOGIC: [Negative.] Past Medical History Past Medical History: Asthma, COPD, Diabetes Mellitus, Hyperlipidemia, Hypertension, Skin Disorder Additional Past Medical History / Comment(s): diverticulitis, autoimmune disord er,psoriasis, hx of falls from lightheadedness,urinary leakage History of Any Multi-Drug Resistant Organisms: None Reported Past Surgical History: Bladder Surgery Additional Past Surgical History / Comment(s): colonoscopies, stomach polyp Past Anesthesia/Blood Transfusion Reactions: No Reported Reaction Additional Past Anesthesia/Blood Transfusion Reaction / Comment(s): no hx blood transfusion Past Psychological History: Anxiety, Depression Smoking Status: Current every day smoker Past Alcohol Use History: Occasional Additional Past Alcohol Use History / Comment(s): started smoking at age teenager, <1 ppd Past Drug Use History: None Reported - Past Family History Sister(s) Family Medical History: Cancer Additional Family Medical History / Comment(s): pancreatic, lymphnode Mother Additional Family Medical History / Comment(s): brain aneurysm Father Family Medical History: Congestive Heart Failure (CHF) Medications and Allergies Home Medications Medication Instructions Recorded Confirmed Type Ascorbic Acid [Vitamin C] 500 mg PO DAILY 11/05/24 11/05/24 History Calcium 26/Magnesium 15/Zinc 1 each PO DAILY 11/05/24 11/07/24 History [Lsrzagm-Hxidtcuum-Gejq Capsule] Cholecalciferol (Vitamin D3) 50 mcg PO DAILY 11/05/24 11/07/24 History [Vitamin D3 (50 Mcg = 2000 Iu)] Cinnamon Bark [Cinnamon] 2,400 mg PO DAILY 11/05/24 11/07/24 History Cyanocobalamin (Vitamin B-12) 2,000 mcg PO DAILY 11/05/24 11/07/24 History [Vitamin B-12] Cyclobenzaprine HCl 5 mg PO BID PRN 11/05/24 11/07/24 History Melatonin [Melatonin Tr] 10 - 20 mg PO HS PRN 11/05/24 11/07/24 History Naproxen Sodium [Aleve] 220 mg PO BID PRN 11/05/24 11/07/24 History hydroCHLOROthiazide [Hydrodiuril] 25 mg PO DAILY 11/05/24 11/07/24 History Allergies Allergy/AdvReac Type Severity Reaction Status Date / Time adhesive tape Allergy Rash/Hives Verified 11/07/24 09:02 mold Allergy pneumonia Verified 11/07/24 09:02 symptoms Physical Exam Osteopathic Statement: *. No significant issues noted on an osteopathic structural exam other than those noted in the History and Physical/Consult. Vitals: Vital Signs Temp Pulse Pulse Resp BP Pulse Ox 11/08/24 07:03 98.0 F 71 18 110/66 91 L 11/08/24 01:39 98 F 68 18 94/50 90 L 11/07/24 19:50 56 L 11/07/24 19:14 97.6 F 64 18 171/84 93 L 11/07/24 15:00 65 16 131/74 94 L 11/07/24 14:00 62 18 128/65 95 11/07/24 13:00 64 18 124/79 94 L 11/07/24 12:30 65 16 130/85 94 L 11/07/24 12:00 63 16 116/73 95 Intake and Output 11/07/24 11/08/24 11/08/24 22:59 06:59 14:59 Other: # Voids 2 2 # Bowel Movements 3 1 Weight 69.6 kg No acute distress, oriented 3. Currently on room air. Saturations are 91%. HEENT examination is grossly unremarkable. Mucous membranes are moist. No oral lesions. Neck supple. Full range of motion. No adenopathy thyromegaly or neck vein distention. Cardiovascular examination reveals regular rhythm rate. S1-S2 normal. No S3 or S4. No discernible murmur noted. Lungs reveal diffuse bilateral expiratory rhonchi. Few expiratory wheezes. No crackles. Breath sounds equal. Abdomen soft bowel sounds are heard. No masses or tenderness. Extremities are intact. No cyanosis clubbing or edema. Skin is without rash or lesion. Neurologic examination is brief but nonfocal. Results - Laboratory Findings CBC and BMP: 11/08/24 03:10 11/08/24 03:10 Abnormal lab findings: Abnormal Labs 11/07/24 11/07/24 11/08/24 09:15 09:20 03:10 RBC 5.74 H Hgb 17.5 H Hct 51.7 H Chloride 109 H Total Protein 8.7 H - Diagnostic Findings Chest x-ray: image reviewed (0364) Assessment and Plan Assessment: Probable moderate to severe COPD, from 55 years of tobacco use. Bowel obstruction, secondary to diverticular disease, with anticipated surgery. History of diabetes mellitus. History of hypertension. History of hyperlipidemia. History of 55 years of tobacco use at 1 pack of cigarettes a day, currently still smoking. Plan: Plan dated November 08, 2024. The patient is at moderate to high increased operative risk, based on her history, and her 55 years of tobacco use. The patient will be discharged according to the surgeon, and she will follow-up with me in the office. In the meantime, she can use her albuterol inhaler as needed. In the office she will need a 6-minute walk distance, and a complete pulmonary function test. Labs, x- rays, and all medications reviewed. We will continue to follow the patient, make recommendations. Diagnosis is guarded. She is counseled about the importance of smoking cessation. Time with Patient: Greater than 30
[2024-11-08] MEDS ORDERED: LORazepam 1 MG/0.5 ML VIAL IV PRN (11:42)
--- NOTE | 2024-11-08 11:44 | P.PN ---
Progress Note - Text Progress Note Date: 11/08/24 Patient reassessed. Consultants review appreciated. Per pulmonary, patient extremely high risk and not optimized for surgery. As a result, options for discharge were reviewed with the patient with outpatient management after optimization for surgery with real estate underwriter. Patient complained of headache and neck pain. Patient reports chronic magnesium use. Will give magnesium infusion. Will restart diet. Anticipated discharge after magnesium infusion reviewed.
[2024-11-08] MEDS: MAGNESIUM SULFATE-D5W PMX 1 GM in DEXTROSE/WATER 1 100ML.BAG IVPB SCH (11:49)
--- NOTE | 2024-11-08 15:01 | P.PN ---
Progress Note - Text Progress Note Date: 11/08/24 After magnesium infusion, patient reports feeling much better. Per discussion with pulmonary team, patient be optimized as outpatient. Patient dysphagia resolved after upper endoscopy dilation. Overall, stable for discharge.
[2024-11-09 09:12] LABS: Anabasine Urine 14.4 ng/mL (<2.0)
== END 2024-11-08 15:51 | disposition home or self-care (01) ==
LOC: ORWHC2ENDO 08:39 → 4SSUR 10:25 → ORWHC2ENDO 11-08 15:51
PROVIDERS: ATTEND Surgery Plastic and Reconstructive Surgery
DX: K21.00 Gastro-esophageal reflux disease with esophagitis, without bleeding (principal); K22.2 Esophageal obstruction; K56.699 Other intestinal obstruction unspecified as to partial versus complete obstruction; K57.30 Diverticulosis of large intestine without perforation or abscess without bleeding; K29.80 Duodenitis without bleeding; K44.9 Diaphragmatic hernia without obstruction or gangrene; E11.9 Type 2 diabetes mellitus without complications; E78.5 Hyperlipidemia, unspecified; E86.0 Dehydration; I10 Essential (primary) hypertension; I44.0 Atrioventricular block, first degree; K25.9 Gastric ulcer, unspecified as acute or chronic, without hemorrhage or perforation; J44.89 Other specified chronic obstructive pulmonary disease; F17.210 Nicotine dependence, cigarettes, uncomplicated; Z85.3 Personal history of malignant neoplasm of breast; Z79.899 Other long term (current) drug therapy; Z88.8 Allergy status to other drugs, medicaments and biological substances
CPT/HCPCS: 88305; 80053 ×2; 85025 ×2; 80323; 71045; 45378; 43239; 43248; J2405; J2003; J3475; J2704